=== PATIENT | male | born 1975 | race African-American/Black ===

== ENCOUNTER → 2025-02-04 | Outpatient (CLI) | payer MEDICAID, SELFPAY ==
--- NOTE | 2025-02-04 11:06 | EKG_ITS ---
[facility] Test Date: 2025-02-04 Pat Name: CHERYL YE Department: Room: - Gender: Male [employer] Licensing Worker: JACKIE : 1975 Requested By: Chaim Henao Order Number: [id number] Reading MD: Chaim Henao Measurements Intervals Wallace Rate: 54 P: 67 TN: 195 QRS: 22 QRSD: 95 T: 26 QT: 396 QTc: 378 Interpretive Statements SINUS BRADYCARDIA POSSIBLE LEFT ATRIAL ENLARGEMENT [-0.1mV P WAVE IN V1/V2] WARNING: DATA QUALITY MAY AFFECT INTERPRETATION No previous ECG available for comparison /[email or web address]/[id number]
== END | disposition home or self-care (01) ==
LOC: SEKG 10:50
PROVIDERS: PCP Physician Assistant; Referring Provider Orthopaedic Surgery; Visit Provider Orthopaedic Surgery
DX: Z01.818 Encounter for other preprocedural examination (principal); I10 Essential (primary) hypertension
CPT/HCPCS: 93005